=== PATIENT | female | born 1980 | race Caucasian/White ===

== ENCOUNTER 2020-03-01 00:22 | Outpatient (CLI) | payer OTHER, SELFPAY ==
--- NOTE | 2020-03-01 12:22 | PM.IMHP ---
H&P: HPI History of Present Illness Chief complaint: Pre op COVID testing Narrative: Patricia Hughes is a 39 year old female presents for evaluation for multiple concerns. First has had heavy irregular vaginal bleeding with menstrual cycles lasting 5-7 days 3-5 days very heavy with clotting and cramping. Ultrasound revealed enlarged globular uterus with essentially normal endometrial cavity. Also has had cervical dysplasia. Therefore will also be proceeding with a LEEP conization. Review of Systems Review of Systems: All systems reviewed & are unremarkable except as noted in HPI and below Meds Home Medications and Allergies Home Medications Medication Instructions Recorded Confirmed Type levothyroxine 75 mcg PO DAILY 02/19/20 02/19/20 History levothyroxine 150 mcg PO DAILY 02/19/20 02/19/20 History Allergies Allergy/AdvReac Type Severity Reaction Status Date / Time butorphanol Allergy Mild severe Verified 02/19/20 12:44 hypotension Exam Const: General: no acute distress Resp: Auscultation: clear to auscultation bilaterally Cardio: Rate: regular rate Rhythm: regular rhythm GI: GI Palp: Yes Soft to palpation : Other: Uterus enlarged 8-10 week size. Assessment and Plan Assessment and plan (1) Menometrorrhagia: Code(s): N92.1 - Excessive and frequent menstruation with irregular cycle Status: Acute (2) Dysmenorrhea: Code(s): N94.6 - Dysmenorrhea, unspecified Status: Acute (3) Cervical dysplasia: Code(s): N87.9 - Dysplasia of cervix uteri, unspecified Status: Acute Additional Plan 1. Proceed with hysteroscopy and uterine curettings 2. Proceed with LEEP conization.
[2020-03-01 17:13] LABS: SARS-CoV-2 RNA PCR Negative
== END 2020-03-01 00:23 | disposition home or self-care (01) ==
PROVIDERS: Visit Provider Obstetrics & Gynecology
DX: Z01.812 Encounter for preprocedural laboratory examination (principal); Z11.59 Encounter for screening for other viral diseases
CPT/HCPCS: 87635; C9803; U0003

== ENCOUNTER 2020-03-03 01:28 | Day surgery (SDC) | payer OTHER, SELFPAY ==
[2020-02-19 12:46] VITALS: BMI 30.4
--- NOTE | 2020-03-03 09:35 | WPDANESEPPF ---
Anes - Initial Pre Proc Eval Procedure: Operation Date: 03/03/20 13:45 Proposed Procedures p Loop Electrical Excision Procedure - Ray Anderson MD s Hysteroscopy, Dilation and Curettage - Ray Anderson MD Date/Time: 03/03/20 09:35 Surgeon: Ray Anderson MD Pre Op Diagnosis: Menometrorrhagia, cervical dysplagia Patient Data Age: 39 Gender: F Height: 1.6 m Weight: 78.1 kg Allergies Allergy/AdvReac Type Severity Reaction Status Date / Time butorphanol Allergy Mild severe Verified 02/19/20 12:44 hypotension Home Medications Medication Instructions Recorded Confirmed Type levothyroxine 75 mcg PO DAILY 02/19/20 02/19/20 History levothyroxine 150 mcg PO DAILY 02/19/20 02/19/20 History Patient hx anesthesia problems: post op nausea/vomiting Family hx anesthesia problems: none PMFSH Past Medical History Medical History (Updated 03/03/20 @ 13:02 by David Moran MD) Anxiety Cervical dysplasia Depression Jaime's disease Interstitial cystitis Obesity Anes - Eval Final PreProcedure Day of Procedure 03/03/20 09:35 Patient weight: obese Heart: regular rate and rhythm Lungs: clear to auscultation and normal air movement Airway: Mallampati scale class II Neurological: alert and oriented Last oral intake: >/= 8 hours ASA classification: II Emergent: no Anesthetic plan: proceed Anesthesia type and monitoring: general GIVS Informed Consent: The patient's anesthetic plan and its attendant risks and benefits were discussed with the patient/family/POA. Questions were solicited and answers provided to the satisfaction of the patient/family/POA.
--- NOTE | 2020-03-03 11:58 | WPDHPUPDATE1 ---
History and Physical Update Update Date/Time: 03/03/20 11:58 History and Physical has been reviewed, including an updated exam of the patient. There are NO changes in the patient's condition. Risks, benefits, and alternatives have been discussed and questions answered. Patient agrees to proceed with procedure.
--- NOTE | 2020-03-03 12:12 | SUR.PREOP ---
PT HAS NOT SHOWN UP FOR SURGERY TODAY. CALLED AND LEFT A MESSAGE FOR PT. DR HAYES NOTIFIED.
[2020-03-03] MEDS: LACTATED RINGERS 1,000 ML 30 ML IV CONT (13:10)
[2020-03-03 13:22] VITALS: BP 118/77; PULSE 86; RESP 16; TEMP 36.7; O2SAT 98; BMI 30.2
[2020-03-03] MEDS: KETOROLAC 30 MG/ML VIAL (*BKC) IV PUSH (13:38)
--- NOTE | 2020-03-03 13:58 | PM.OP ---
Procedure Note - Brief Procedure Note - Brief Date of procedure: 03/03/20 Pre-op diagnosis: Menometrorrhagia, cervical dysplagia Post-op diagnosis: same Procedure performed: 1. Hysteroscopy with uterine curettings and polypectomy 2. LEEP cervical conization Description of procedure: Patient prepped and draped in usual manner for this procedure. Cervix was dilated to allow the hysteroscope to place which did reveal thickened tissue and posterior wall polyp. Curettings were performed and all the tissue was removed. Usual solution was then placed to delineate the transformation zone which was readily done. In addition there was a small lesion separate which was also delineated. The lesion was removed using cautery. Ectocervical specimen and endocervical cervical specimens were also obtained. Bed of the biopsy site as well as the LEEP conization site were cauterized and it was no significant bleeding. This point seizure was considered terminated patient was sent to recovery in a stable condition. Anesthesia: GLMA Surgeon: Ray Anderson MD Estimated blood loss (mL): 50 Drains: No Packing: No Pathology: yes Complications: No immediate complications Condition: stable Disposition: PACU Findings: 1. Thickened endometrial cavity with posterior wall endo myometrial polyp. 2. Transformation zone well delineated 3. Cervical lesion identified lateral to the transformation zone.
[2020-03-03 14:07] VITALS: BP 115/67; PULSE 74; RESP 16
[2020-03-03 14:37] VITALS: BP 109/60; PULSE 69; RESP 16
[2020-03-03 15:00] VITALS: BP 107/67; PULSE 72; RESP 16
== END 2020-03-03 15:00 | disposition home or self-care (01) ==
PROVIDERS: Visit Provider Obstetrics & Gynecology
PROC: 0UBC7ZZ Excision of Cervix, Via Natural or Artificial Opening (ICD-10-PCS; CPT 57522; principal; 2020-03-03 13:45)
PROC: 0U5B8ZZ Destruction of Endometrium, Via Natural or Artificial Opening Endoscopic (ICD-10-PCS; CPT 58563; 2020-03-03 13:45)
DX: N92.1 Excessive and frequent menstruation with irregular cycle (principal); N72 Inflammatory disease of cervix uteri; N87.9 Dysplasia of cervix uteri, unspecified; E06.3 Autoimmune thyroiditis; F41.8 Other specified anxiety disorders; E66.9 Obesity, unspecified; Z68.30 Body mass index [BMI] 30.0-30.9, adult
CPT/HCPCS: 58558; 57522; 88305; A9270; J1885; J2250; J2704; J3010; J7030; J7120

== ENCOUNTER 2021-03-01 20:39 | Emergency (ER) | payer OTHER, SELFPAY ==
[2021-03-01 20:52] VITALS: BP 114/84; PULSE 112; RESP 14; TEMP 36.8; O2SAT 100
--- NOTE | 2021-03-01 21:55 | ED.DENTAL ---
HPI - Dental/Oral General Chief complaint: Ear Stated complaint: swollen lymph node, ear pain Time Seen by Provider: 03/01/21 21:13 Source: patient Mode of arrival: ambulatory Limitations: no limitations History of Present Illness HPI Narrative: This is a 40-year-old female that presents to the emergency department for lymphadenopathy. Reports over the last couple of days she has noted a painful, swollen lymph node under her left jaw. Reports she recently had some dental work. Also reports a cold sore on the left side of the lower lip. Reports the pain is radiating into her ear. Denies fever, sore throat, or cough. Related Data Home Medications Medication Instructions Recorded Confirmed levothyroxine 75 mcg PO DAILY 02/19/20 04/16/20 levothyroxine 150 mcg PO 3XW 02/19/20 04/16/20 Allergies Allergy/AdvReac Type Severity Reaction Status Date / Time butorphanol Allergy Mild severe Verified 03/01/21 21:29 hypotension Review of Systems Review of Systems: Narrative: CONSTITUTIONAL: Denies fever ENT: Denies rhinorrhea, congestion, sore throat All systems reviewed & are unremarkable except as noted in HPI and below PMFSH Past Medical History Medical History (Updated 03/01/21 @ 21:58 by Nyasia Blair PA-C) Anxiety Cervical dysplasia Depression Jamie's disease Interstitial cystitis Obesity Social History Social History Smoking packs per day: 0.5 Smoking cigarettes per day: 10.0 Years smoked: 15 Smoking pack-years: 7.50 Smoking status: Current every day smoker Tobacco type: cigarettes Spiritual care concerns: No Exam Narrative: Exam Narrative: GENERAL: Well-appearing, well-nourished, and in no acute distress. HEAD: Normocephalic, atraumatic. EYES: EOMI. ENT: Nares clear, no rhinorrhea or epistaxis. Mucous membranes moist. Oropharynx without tonsillar hypertrophy exudate or other lesions. Bilateral TMs pearly jasmine non-bulging NECK: Supple. Tender left-sided submandibular adenopathy CHEST: Clear to auscultation. No respiratory distress. No wheezes rales or rhonchi HEART: Regular rate and rhythm. No murmur heard. Normal peripheral pulses. EXTREMITIES: Normal range of motion. No edema. SKIN: Warm, dry, no rash. NEURO: No focal deficits. Alert and oriented x3. PSYCH: Normal mood and affect Course Vital Signs Vital signs: Vital Signs Temperature 98.3 F 03/01/21 20:52 Pulse Rate 112 H 03/01/21 20:52 Respiratory Rate 14 03/01/21 20:52 Blood Pressure 114/84 03/01/21 20:52 Pulse Oximetry 100 03/01/21 20:52 Temperature 98.3 F 03/01/21 20:52 Pulse Rate 112 H 03/01/21 20:52 Respiratory Rate 14 03/01/21 20:52 Blood Pressure 114/84 03/01/21 20:52 Pulse Oximetry 100 03/01/21 20:52 MDM - Dental/Oral MDM Narrative Medical decision making narrative: Patient presents to the emergency department for submandibular adenopathy. She is afebrile and nontoxic-appearing. Does currently have a cold sore, possibly reason for adenopathy. Does report she also had a lot of dental work done recently. Will send an antibiotic to the pharmacy for any worsening symptoms. She is to follow-up with her primary doctor. She was given warnings to return to the ER Critical Care Time Critical Care Time Critical Care Time: No Discharge Plan Discharge Clinical Impression: Lymphadenopathy, submandibular Patient Disposition: Home, Self-Care Condition: Stable Instructions: Antibiotic Form, Lymphadenopathy (ED) Additional Instructions: Return to the emergency department if you experience fever >101, difficulty breathing, trouble swallowing, or any other symptoms that are concerning to you You may start antibiotic for any worsening symptoms Follow-up with your doctor Prescriptions: New amoxicillin-pot clavulanate 875-125 mg tablet 1 tablet PO Q12H 7 Days Qty: 14 RF: 0 No Action levothyroxine
== END 2021-03-01 22:10 | disposition home or self-care (01) ==
PROVIDERS: Emergency Provider Emergency Medicine
DX: R59.1 Generalized enlarged lymph nodes (principal); E06.3 Autoimmune thyroiditis; E66.9 Obesity, unspecified; Z68.26 Body mass index [BMI] 26.0-26.9, adult; F17.210 Nicotine dependence, cigarettes, uncomplicated
CPT/HCPCS: 99283

== ENCOUNTER 2022-01-19 14:47 | Outpatient (CLI) | payer OTHER, SELFPAY ==
--- NOTE | ~2022-01-19 | US_ITS ---
EXAMINATION: US pelvic complete w TV DATE: 01/19/2022 15:38 INDICATION: Right lower quadrant abdominal pain. TECHNIQUE: Multiple transabdominal and transvaginal sonographic images of the pelvis were obtained. COMPARISON: None. FINDINGS: TRANSABDOMINAL ULTRASOUND: The uterus is absent. There is no free fluid in the pelvis. TRANSVAGINAL ULTRASOUND: The right ovary measures 2.7 x 1.9 x 2.8 cm. There is normal vascular flow in right ovary. The left o vary is not visualized. IMPRESSION: 1. Normal right ovary. 2. Left ovary not visualized. Reviewed, dictated and finalized at location A.
== END 2022-01-19 14:48 | disposition home or self-care (01) ==
PROVIDERS: Visit Provider Obstetrics & Gynecology
DX: R10.31 Right lower quadrant pain (principal)
CPT/HCPCS: 76830; 76856

== ENCOUNTER 2023-01-23 15:41 | Outpatient (CLI) | payer OTHER, SELFPAY ==
[2023-01-23 17:06] LABS: Hepatitis B Surface Antigen Negative (Negative)
[2023-01-23 17:12] LABS: HAV RESULT Negative (Negative); Hepatitis B Core IgM Result Negative (Negative)
[2023-01-23 17:23] LABS: Hepatitis C Virus Antibody Negative (Negative)
[2023-01-24 10:57] LABS: Rapid Plasma Reagin Non-Reactive (NonReactive)
[2023-01-27 04:56] LABS: FSH 10.1 mIU/mL (***); LH 3.4 mIU/mL (***); Progesterone 0.5 ng/mL (***)
[2023-01-28 09:50] LABS: Testosterone Total 30 ng/dL (2-45)
[2023-02-02 23:32] LABS: Estradiol, Ultrasensitive 95 pg/mL
== END 2023-01-23 15:42 | disposition home or self-care (01) ==
LOC: ANHLAB 15:42
PROVIDERS: Visit Provider Student in an Organized Health Care Education/Training Program
DX: Z11.3 Encounter for screening for infections with a predominantly sexual mode of transmission (principal); L68.0 Hirsutism; N83.209 Unspecified ovarian cyst, unspecified side
CPT/HCPCS: 36415; 80074; 82670; 83001; 83002; 84144; 84403; 86592; 86695; 86696

== ENCOUNTER 2024-02-12 15:14 | Outpatient (CLI) | payer BC, SELFPAY ==
--- NOTE | ~2024-02-12 | MR_ITS ---
MRI of the right ankle Clinical history: Pain Technique: Coronal proton-density and proton-density fat-sat images, axial proton-density and proton- density fat-sat images, and sagittal proton-density and proton-density fat-sat images were acquired. Findings: Syndesmotic ligaments are intact. Anterior and posterior tibial fibular ligaments, and calc aneofibular ligament, are probably intact. Deltoid ligament is intact. Medial flexor tendons, peroneal tendons, anterior extensor tendons, and Achilles tendon are intact. There is no osteochondral lesion of the talar dome. Bone marrow signals and joint spaces are intact. Small tibiotalar joint effusion probably present. Plantar fascia intact. Normal signal preserved in t he sinus Tarsi. No soft tissue mass or fluid collection evident otherwise. There is subcutaneous soft tissue edema at the medial aspect of the ankle, nonspecific. Impression: Medial subcutaneous soft tissue edema, nonspecific. No other significant abnormality identified. Reviewed, dictated and finalized at [facility]. Impression: Medial subcutaneous soft tissue edema, nonspecific. No other significant abnormality identified.
== END 2024-02-12 15:15 | disposition home or self-care (01) ==
LOC: ANHIMG 15:17
DX: M25.571 Pain in right ankle and joints of right foot (principal); M79.89 Other specified soft tissue disorders
CPT/HCPCS: 73721